=== PATIENT | male | born 1940 | race Caucasian/White ===

== ENCOUNTER 2023-04-17 05:40 | Day surgery (SDC) | payer OTHER ==
[~2023-04-17 05:40] MED LIST: PREVACID30 MG PO; SIMVASTATIN10 MG PO
== END 2023-04-17 11:30 | disposition home or self-care (01) ==
LOC: AMB-ENDOS 05:40
PROVIDERS: ATTEND Surgery
DX: K62.5 Hemorrhage of anus and rectum (principal); K57.30 Diverticulosis of large intestine without perforation or abscess without bleeding; K59.09 Other constipation; Z86.010 Personal history of colon polyps; K64.8 Other hemorrhoids; K64.2 Third degree hemorrhoids

== ENCOUNTER 2023-06-02 07:50 | Outpatient (CLI) | payer OTHER | END 2023-06-02 08:00 | disposition home or self-care (01) | LOC: TOM 07:50 | PROVIDERS: ATTEND Surgery | DX: K62.5 Hemorrhage of anus and rectum (principal); K64.2 Third degree hemorrhoids; K62.89 Other specified diseases of anus and rectum; K59.09 Other constipation; K57.30 Diverticulosis of large intestine without perforation or abscess without bleeding; Z86.010 Personal history of colon polyps ==

== ENCOUNTER 2023-11-26 10:54 | Emergency (ER) | payer OTHER ==
[~2023-11-26] VITALS: Ht 175.3 cm; Wt 66.2 kg
[2023-11-26] MEDS ORDERED: CARAFATE1 GM PO (11:17)
[2023-11-26] MEDS ORDERED: ENSURE COMPACT118 ML PO (11:17)
[2023-11-26 12:47] LABS: HEMATOCRIT 35.6 % (39.0-48.0); HEMOGLOBIN 11.8 g/dL (13-16.00); MEAN CELL VOLUME 90.5 fL (80.0-100.00); MEAN CORPUSCULAR HEMOGLOBIN 30.1 pg (27.00-32.0); MEAN CORPUSCULAR HGB CONC 33.2 g/dl (32.0-36.0); PLATELET COUNT 254 K/uL (150-450); RED BLOOD COUNT 3.93 M/uL (4.00-6.00); RED CELL DISTRIBUTION WIDTH 13.5 % (11.5-14.5)
[2023-11-26 13:26] LABS: CALCIUM 8.8 mg/dL (8.5-10.1); CREATININE SERUM 1.29 mg/dL (0.70-1.30); GFR 53.06; POTASSIUM 4.07 mEq/L (3.5-5.1)
[2023-11-26 13:31] LABS: PH,URINE 5.5 (5.0-8.0); URINE APPEARANCE Clear; URINE BILIRRUBIN Negative (NEGATIVE); URINE BLOOD Negative; URINE COLOR Yellow; URINE GLUCOSE Negative (NEGATIVE); URINE LEUKOCYTE Negative; URINE NITRATE Negative; URINE PROTEIN Negative (NEGATIVE); URINE UROBILINOGEN 0.2 E.U./dl
[2023-11-26 13:35] LABS: URINE BACTERIA 8.8 uL (0.0-1933); URINE EPITHELIAL CELLS 2.6 uL (0.0-38.8); URINE RBC 5.6 uL (0.0-20.8)
[2023-11-26] MEDS ORDERED: LEVSIN/SL0.125 MG SL (18:03)
== END 2023-11-26 18:36 | disposition home or self-care (01) ==
LOC: ER 10:56
PROVIDERS: Emergency Medicine
DX: R10.9 Unspecified abdominal pain (principal); Z88.2 Allergy status to sulfonamides; K21.9 Gastro-esophageal reflux disease without esophagitis; E78.00 Pure hypercholesterolemia, unspecified; K57.30 Diverticulosis of large intestine without perforation or abscess without bleeding
CPT/HCPCS: 36415; 74177; 96365; 96366; 99284; J7030; Q9965